=== PATIENT | female | born 1945 | race Caucasian/White ===

== ENCOUNTER 2017-03-12 21:08 | Inpatient (IN) | payer OTHER ==
[~2017-03-12] VITALS: Ht 149.9 cm; Wt 69.0 kg
[2017-03-12] MEDS ORDERED: METHYLPREDNISOLONE 125 MG VIAL IV STA (21:56)
[2017-03-12] MEDS ORDERED: MAGNESIUM SULFATE 1GM / D5W 1 GM BAG IV STA (21:56)
[2017-03-12] MEDS ORDERED: LINA1CAP2 PO (21:58)
[2017-03-12] MEDS ORDERED: SIME80CH PO (21:58)
[2017-03-12] MEDS ORDERED: ALBU18002 INH (21:58)
[2017-03-12] MEDS ORDERED: NAPR500T3 PO (21:58)
[2017-03-12] MEDS ORDERED: SYMIN160 INH (21:58)
[2017-03-12] MEDS ORDERED: MONT1TAB5 PO (21:58)
[2017-03-12] MEDS ORDERED: METH10TA2 PO (21:58)
[2017-03-12] MEDS ORDERED: SIMV20TA2 PO (21:58)
[2017-03-12] MEDS ORDERED: MCRK20 PO (21:58)
[2017-03-12] MEDS ORDERED: ESOM1CAP24 PO (21:58)
[2017-03-12] MEDS ORDERED: FLUT0.15 NAE (21:58)
[2017-03-12] MEDS ORDERED: OXGN (21:58)
[2017-03-12] MEDS ORDERED: ALBINS INH (21:58)
[2017-03-12] MEDS ORDERED: FRS/40 PO (21:58)
[2017-03-12] MEDS ORDERED: LOSA100T65 PO (21:58)
[2017-03-12] MEDS ORDERED: ALPR0.25 PO (21:58)
[2017-03-12] MEDS ORDERED: AZITHROMYCIN IV 500 MG in DEXTROSE 5% 250ML 250 ML IV ONE (22:00)
[2017-03-12] MEDS ORDERED: ALBUT/IPRATROP 3MG/0.5MG NEB 3 ML VIAL INH ONE (22:00)
[2017-03-12 22:02] LABS: BASO % 0.3 %; BASO ABS # 0.02 K/uL (0-0.2); COMPLETE YES; EOS % 0.6 %; HEMATOCRIT 41.5 % (37-47); IG% 0.3 %; LYMPH % 10.3 %; LYMPH ABS # 0.81 K/uL (1.2-3.4); MEAN CELL VOLUME 95.8 fL (80-100); MEAN CORPUSCULAR HEMOGLOBIN 30.7 pg (25-34); MEAN PLATELET VOLUME 9.9 fL (7.4-10.4); MONO % 10.3 %; NEUT % 78.2 %; PLATELET COUNT 207 K/uL (130-400); RED BLOOD COUNT 4.33 M/uL (4.2-5.4); WHITE BLOOD COUNT 7.87 K/uL (4.8-10.8)
--- NOTE | 2017-03-12 22:09 | EMERGENCY ROOM VISIT NOTE ---
History Report prepared by Abebe: Aurelia Ellis Under the Supervision of: Dr. Kyaw Munguia M.D. First contact with patient: 21:38 Chief Complaint: RESPIRATORY PROBLEMS Stated Complaint: COPD, HEADACHE, FEVER, PAIN IN R ARM AND BACK Nursing Triage Summary: pt reports increased pain in abdomen tx for UTI 1 week ago and not feeling better , reports urinary freq. Then started last night with increased sob , + clear to white mucus production History of Present Illness The patient is a 72 year old female who presents to the Emergency Room with complaints of persistent shortness of breath that worsened yesterday. She currently rates her discomfort as a 7/10 in severity. The patient states that she has a history of COPD, noting that she always is short of breath and always has a cough. She states that she has noticed an increased cough, stating that she has bringing up very little white sputum. The patient states that she wears supplemental nasal cannula oxygen at home at night and when she is overly active. She states that today she has noticed fever, chills, and nausea. The patient states that she has been experiencing a headache. She denies any vomiting. She states that she has been using her inhalers at home. The patient states that she has been experiencing abdominal pain and back pain. She reports the pain began when she was recently diagnosed with a UTI. The patient denies any current urinary symptoms. She reports intermittent chest pain, noting that is not abnormal. The patient states that she has noticed increased swelling to her right leg, but notes that she had a previous injury to that leg. She states that she was treated for cellulitis in her right leg two months ago. The patient denies being on prednisone at this time. She states that each morning she wakes up feeling sick. Source of History: patient Onset: yesterday Position: other (global) Symptom Intensity: 7/10 Quality: other (shortness of breath) Timing: worsening, other (persistent) Associated Symptoms: + fevers, + chills, + headache, + nausea, + abdominal pain, + back pain, No vomiting, No urinary symptoms Review of Systems See HPI for pertinent positives and negatives. A total of ten systems were reviewed and were otherwise negative. Past Medical & Surgical Medical Problems: (1) Acute and chronic respiratory failure with hypoxia (2) Asthma (3) COPD (chronic obstructive pulmonary disease) Surgical Problems: (1) S/P cholecystectomy Family History Cancer Lung disease Social History Smoking Status: Current Every Day Smoker Alcohol Use: none Marital Status: Housing Status: lives with significant other Occupation Status: retired Current/Historical Medications Scheduled Albuterol Sulf (Albuterol Sulfate), 2.5 MG INH DIRECTED Albuterol Sulfate (Proair Respiclick), 2 PUFFS INH Q6H Budesonide/Formoterol Fumarate (Symbicort 160/4.5 Inhaler ), 2 PUFFS INH BID Esomeprazole Magnesium (Nexium 24Hr), 20 MG PO QAM Fluticasone Propionate (Nasal) (Flonase Allergy Relief), 1 SPRAY CHARISSA DAILY Furosemide (Lasix), 40 MG PO QAM Home O2 Therapy (Oxygen), Unknown Dose NA HS Linaclotide (Linzess), 290 MCG PO DAILY Losartan Potassium (Cozaar), 100 MG PO QAM Methadone Hcl (Dolophine), 10 MG PO TID Montelukast Sodium (Montelukast Sodium), 10 MG PO QAM Naproxen (Naproxen), 500 MG PO BID Potassium Chloride (Klor-Con M20), 20 MEQ PO QAM Simvastatin (Zocor), 20 MG PO QPM Scheduled PRN Alprazolam (Xanax), 0.125 MG PO DAILY PRN for Anxiety/Agitation Simethicone (Gas-X), 1 TAB PO DIRECTED PRN for Gas or Constipation Allergies Coded Allergies: Diltiazem (Verified Allergy, Unknown, ., 03/13/17) Gabapentin (Verified Allergy, Unknown, ., 03/13/17) Moxifloxacin (Verified Allergy, Unknown, ., 03/13/17) Penicillins (Verified Allergy, Unknown, ., 03/13/17) Sertraline (Verified Allergy, Unknown, ., 03/13/17) Unobtainable (Verified Allergy, Unknown, UNKNOWN, 03/12/17) PT STATES "I HAVE ALLERGIES, CAN'T REMEMBER NAMES". MD [facility]. Uncoded Allergies: Valaresp (Allergy, Unknown, ., 03/13/17) Physical Exam Vital Signs Date Time Temp Pulse Resp B/P (MAP) Pulse Ox O2 Delivery O2 Flow Rate FiO2 03/13/17 01:08 88 03/13/17 00:13 90 19 95 Nasal Cannula 3.0 03/12/17 23:43 88 18 95 Nebulizer 03/12/17 23:13 100 21 95 Nebulizer 03/12/17 23:08 87 16 98 Nebulizer 03/12/17 22:47 134/62 03/12/17 22:45 87 20 134/62 98 Nebulizer 03/12/17 22:27 82 18 94 Room Air 03/12/17 22:08 91 27 93 03/12/17 21:38 93 21 95 03/12/17 21:34 103 03/12/17 21:25 142/75 03/12/17 21:11 37.6 105 18 148/79 86 Room Air Physical Exam GENERAL: Awake, alert, chronically ill-appearing, dyspneic, in no distress HENT: Normocephalic, atraumatic. Oropharynx unremarkable. MM dry EYES: Normal conjunctiva. Sclera non-icteric. NECK: Supple. No nuchal rigidity. FROM. No JVD. RESPIRATORY: Diminished breath sounds throughout, scattered wheezes. CARDIAC: Regular rate, normal rhythm. Extremities warm and well perfused. Pulses equal. ABDOMEN: Soft, non-distended. No tenderness to palpation. No rebound or guarding. No masses. RECTAL: Deferred. MUSCULOSKELETAL: Chest examination reveals no tenderness. The back is symmetrical on inspection without obvious abnormality. There is no CVA tenderness to palpation. No joint edema. LOWER EXTREMITIES: 2+ pitting edema to the right lower extremity with mild erythema, no warmth, no crepitus, NTTP. NEURO: Normal sensorium. No sensory or motor deficits noted. SKIN: No rash or jaundice noted. Medical Decision & Procedures ER Provider Diagnostic Interpretation: Radiology results as stated below per my review and radiologist interpretation: CHEST ONE VIEW PORTABLE HISTORY: 72 years-old Female acute shortness of breath and fever COMPARISON: None available TECHNIQUE: Portable upright AP view of the chest FINDINGS: Patient is slightly rotated to the right. Cardiomediastinal and hilar silhouettes are within normal limits. No pneumothorax, pleural effusion or focal airspace consolidation. Bones are grossly intact. IMPRESSION: No acute cardiopulmonary process. The above report was generated using voice recognition software. It may contain grammatical, syntax or spelling errors. Electronically signed by: Michael Sapp M.D. 03/12/2017 10:21 PM Dictated Date/Time: 03/12/2017 10:20 PM CTA Chest: No PE. No aortic dissection or aneurysm. Coronary calcifications. Scattered Atherosclerotic calcifications of the aorta and branches. Emphysema Minimal scattered atelectasis. Cholecystectomy Old posterior left rib fractures Radiologist: Tahira Jay MD Study ready at 2306 and initial results transmitted at 2331 Laboratory Results 03/12/17 21:30 Red Blood Count 4.33, Mean Corpuscular Volume 95.8, Mean Corpuscular Hemoglobin 30.7, Mean Corpuscular Hemoglobin Concent 32.0, Mean Platelet Volume 9.9, Neutrophils (%) (Auto) 78.2, Lymphocytes (%) (Auto) 10.3, Monocytes (%) (Auto) 10.3, Eosinophils (%) (Auto) 0.6, Basophils (%) (Auto) 0.3, Neutrophils # (Auto ) 6.16, Lymphocytes # (Auto) 0.81, Monocytes # (Auto) 0.81, Eosinophils # (Auto ) 0.05, Basophils # (Auto) 0.02 03/12/17 21:30 Test 03/12/17 21:30 03/12/17 21:39 03/12/17 22:11 03/12/17 22:25 White Blood Count 7.87 K/uL (4.8-10.8) Red Blood Count 4.33 M/uL (4.2-5.4) Hemoglobin 13.3 g/dL (12.0-16.0) Hematocrit 41.5 % (37-47) Mean Corpuscular Volume 95.8 fL (80-100) Mean Corpuscular Hemoglobin 30.7 pg (25-34) Mean Corpuscular Hemoglobin Concent 32.0 g/dl (32-36) Platelet Count 207 K/uL (130-400) Mean Platelet Volume 9.9 fL (7.4-10.4) Neutrophils (%) (Auto) 78.2 % Lymphocytes (%) (Auto) 10.3 % Monocytes (%) (Auto) 10.3 % Eosinophils (%) (Auto) 0.6 % Basophils (%) (Auto) 0.3 % Neutrophils # (Auto) 6.16 K/uL (1.4-6.5) Lymphocytes # (Auto) 0.81 K/uL (1.2-3.4) Monocytes # (Auto) 0.81 K/uL (0.11-0.59) Eosinophils # (Auto) 0.05 K/uL (0-0.5) Basophils # (Auto) 0.02 K/uL (0-0.2) RDW Standard Deviation 48.7 fL (36.4-46.3) RDW Coefficient of Variation 13.7 % (11.5-14.5) Immature Granulocyte % (Auto) 0.3 % Immature Granulocyte # (Auto) 0.02 K/uL (0.00-0.02) Anion Gap 7.0 mmol/L (3-11) Est Creatinine Clear Calc Drug Dose 56.5 ml/min Estimated GFR () 91.7 Estimated GFR (Non- 79.1 BUN/Creatinine Ratio 18.1 (10-20) Calcium Level 9.1 mg/dl (8.5-10.1) Total Bilirubin 0.6 mg/dl (0.2-1) Direct Bilirubin 0.2 mg/dl (0-0.2) Aspartate Amino Transf (AST/SGOT) 14 U/L (15-37) Alanine Aminotransferase (ALT/SGPT) 22 U/L (12-78) Alkaline Phosphatase 51 U/L (45-117) Troponin I < 0.015 ng/ml (0-0.045) Pro-B-Type Natriuretic Peptide 92 pg/ml (0-900) Total Protein 6.7 gm/dl (6.4-8.2) Albumin 3.3 gm/dl (3.4-5.0) Bedside Lactic Acid Venous 0.45 mmol/L (0.90-1.70) Venous Blood pH 7.38 (7.36-7.41) Venous Blood Partial Pressure CO2 52 mmHg (38.0-50.0) Venous Blood Partial Pressure O2 71 mmHg Venous Blood HCO3 30 mmol/L Venous Blood Oxygen Saturation 93.4 % Venous Blood Base Excess 3.6 mEq/L Urine Color YELLOW Urine Appearance CLEAR (CLEAR) Urine pH 5.5 (4.5-7.5) Urine Specific [place] 1.012 (1.000-1.030) Urine Protein NEG (NEG) Urine Glucose (UA) NEG (NEG) Urine Ketones NEG (NEG) Urine Occult Blood NEG (NEG) Urine Nitrite NEG (NEG) Urine Bilirubin NEG (NEG) Urine Urobilinogen NEG (NEG) Urine Leukocyte Esterase NEG (NEG) Laboratory results reviewed by me Medications Administered Medications (Trade) Dose Ordered Sig/Ines Route Start Time Stop Time Status Last Admin Dose Admin Methylprednisolone Sodium Succinate (Solu-Medrol IV) 125 mg NOW STAT IV 03/12/17 21:56 03/12/17 22:03 DC 03/12/17 22:20 125 MG Albuterol/ Ipratropium (Duoneb) 12 ml ONE ONCE INH 03/12/17 22:00 03/12/17 22:03 DC 03/12/17 22:20 12 ML Magnesium Sulfate (Magnesium Sulfate) 2 gm NOW STAT IV 03/12/17 21:56 03/12/17 22:03 DC 03/12/17 22:20 2 GM Azithromycin 500 mg/Dextrose 255 ml @ 125 mls/hr ONE ONCE IV 03/12/17 22:00 03/13/17 00:02 DC 03/12/17 23:16 125 MLS/HR ECG Indication: SOB/dyspnea Rate (beats per minute): 99 Rhythm: normal sinus Findings: no acute ischemic change, other (normal axis ) ED Course 2151: The patient was evaluated in room C8. A complete history and physical exam was performed. 2155: Ordered Magnesium Sulfate 2 gm IV, Solu-Medrol IV 125 mg IV. 2199: Ordered Azithromycin 400 mg/Dextrose 255 ml @ 125 mls/hr IV, DuoNeb 12 ml INH. 0025: I reevaluated the patient and she is resting comfortably. I discussed the exam findings with her and I discussed the treatment plan. She verbalized complete understanding and agreement. She is going to be evaluated for further treatment. 0100: The patient's case was discussed with Dr. Love [facility]. He is going to evaluate the patient for further treatment. Medical Decision I reviewed the patient's past medical history, medications, and the nursing notes as described above. The patient's presentation and history were concerning for COPD exacerbation, pneumonia, bronchitis, ACS, CHF, PE. Patient is a 72-year-old woman with a past medical history of COPD on nocturnal nasal cannula presents to emergency department with worsening shortness of breath cough congestion per history of present illness. Arrival the patient is dyspneic in mild distress and was 85% on room air on arrival. On exam the patient is diminished throughout with scattered wheezes with poor air movement. Patient was given continuous nebs and steroids, magnesium, azithromycin. Labs with WBC within normal limits. Otherwise VBG with mild hypercarbia in the 50s. Chest x-ray unremarkable. EKG unremarkable. Troponin negative in the setting of greater than 6 hours of worsening symptoms making ACS unlikely. However considering the patient's significant dyspnea on presentation without any significant findings on her workup. I had concern for possible underlying pulmonary embolism. CT PE was done and was negative for PE. Otherwise patient additionally reports mild lower abdominal pain has been constant for the past several weeks. Patient was treated for a urinary tract infection by her doctor or she feels that the pain is not improved. CMP unremarkable and UA negative in the setting of a normal WBC I am not concerned for any emergent abdominal process at this time. On reevaluation the patient was feeling improved with improved air movement. She will be admitted to the medicine service for further management. Medication Reconcilliation Current Medication List: was personally reviewed by me Blood Pressure Screening Patient's blood pressure: Elevated blood pressure Blood pressure disposition: Elevated BP felt to be situational, Did not require urgent referral Consults Time Called: 0029 Consulting Physician: HONEY Scherer Returned Call: 0100 The patient's case was discussed with HONEY Scherer. He is going to evaluate the patient for further treatment. Impression Primary Impression: COPD (chronic obstructive pulmonary disease) Scribe Attestation The scribe's documentation has been prepared under my direction and personally reviewed by me in its entirety. I confirm that the note above accurately reflects all work, treatment, procedures, and medical decision making performed by me. Departure Information Dispostion Being Evaluated By Hospitalist Kari Beltran (PCP)
[2017-03-12 22:12] LABS: BLOOD UREA NITROGEN 14 mg/dl (7-18); BUN/CREATININE RATIO 18.1 (10-20); CALCIUM 9.1 mg/dl (8.5-10.1); CARBON DIOXIDE 29 mmol/L (21-32); CHLORIDE 100 mmol/L (98-107); CREATININE 0.75 mg/dl (0.60-1.20); GLUCOSE 103 mg/dl (70-99); POTASSIUM 4.3 mmol/L (3.5-5.1); SODIUM 136 mmol/L (136-145)
[2017-03-12 22:22] LABS: VEN BLD GAS O2 SATURATION 93.4 %; VEN BLOOD GAS BASE EXCESS 3.6 mEq/L
--- NOTE | 2017-03-12 22:22 | DIAGNOSTIC IMAGING REPORT ---
CHEST ONE VIEW PORTABLE HISTORY: 72 years-old Female acute shortness of breath and fever COMPARISON: None available TECHNIQUE: Portable upright AP view of the chest FINDINGS: Patient is slightly rotated to the right. Cardiomediastinal and hilar silhouettes are within normal limits. No pneumothorax, pleural effusion or focal airspace consolidation. Bones are grossly intact. IMPRESSION: No acute cardiopulmonary process. The above report was generated using voice recognition software. It may contain grammatical, syntax or spelling errors. Electronically signed by: Michael Sapp M.D. 03/12/2017 10:21 PM Dictated Date/Time: 03/12/2017 10:20 PM
[2017-03-12 22:27] VITALS: PULSE 82; O2SAT 94
[2017-03-12] MEDS ORDERED: OPTIRAY 320 IV PRN (22:45)
[2017-03-12 23:02] LABS: URINE APPEARANCE CLEAR (CLEAR); URINE BILIRUBIN NEG (NEG); URINE COLOR YELLOW; URINE NITRITE NEG (NEG); URINE PH 5.5 (4.5-7.5); URINE SPECIFIC GRAVITY 1.012 (1.000-1.030); UROBILINOGEN NEG (NEG); ZZUR CULT IF INDIC CLEAN CATCH NO
[2017-03-12 23:33] LABS: MANUAL MICROSCOPIC REQUIRED? NO; REVIEW REQ? NO
[2017-03-13] VITALS (12 sets, daily range): BP systolic 100–123; BP diastolic 59–73; PULSE 74–95; TEMP 36.3–36.9; O2SAT 89–97; Ht 149.9 cm; Wt 69.0 kg
[2017-03-13] MEDS ORDERED: MAGNESIUM HYDROXIDE SUSP 30 ML UDC PO PRN (01:15)
[2017-03-13] MEDS ORDERED: ALUMINUM/MAGNESIUM/SIMETH (MAALOX MAX) 30 ML UDC PO PRN (01:15)
[2017-03-13] MEDS ORDERED: POLYETHYLENE (MIRALAX) 17 GM PACK PO PRN ×2 (01:15→01:30)
[2017-03-13] MEDS ORDERED: ONDANSETRON INJ 2 MG/ML 2 ML VIAL IV PRN (01:15)
[2017-03-13] MEDS ORDERED: ACETAMINOPHEN 325 MG TAB PO PRN (01:15)
[2017-03-13] MEDS ORDERED: ALPRAZOLAM 0.25 MG TAB PO PRN (01:15)
[2017-03-13] MEDS ORDERED: SIMETHICONE 80 MG CHEW PO PRN (01:15)
[2017-03-13 01:20] LABS: ALKALINE PHOSPHATASE 51 U/L (45-117); ALT/SGPT 22 U/L (12-78); AST/SGOT 14 U/L (15-37)
--- NOTE | 2017-03-13 01:28 | History and Physical ---
History & Physical Date & Time of Service: Mar 13, 2017 at 01:13 Chief Complaint: Copd, Headache, Fever, Pain In R Arm And Back Primary Care Physician: Kari Mejia History of Present Illness Source: patient, spouse Mrs Robertson is a 72 yo F with chronic L leg pain (reports she is on methadone for her leg through her PCP in [place]), COPD (on 3L oxygen at night) who presents with worsening shortness of breath and fevers. She reports she felt unwell the last few days, has been coughing, and felt very warm but did not check her temperature. She has diffuse, mild pain in her abdomen and back but these are not new. She was recently treated for a UTI but it unsure of with what. She reports her left leg has been swollen for months, and a few months ago she was on antibiotics for cellulitis, then was seen by a farm assistant. The redness never fully went away. Over the last few days it has become more red as well. She reports it is more red when she is laying on the bed, and the redness goes away when walking. She still smokes outside about 1 pack per day. She reports she is eager to quit but is unable to. Past Medical/Surgical History Medical Problems: (1) Asthma Status: Chronic (2) COPD (chronic obstructive pulmonary disease) Status: Chronic Surgical Problems: (1) S/P cholecystectomy Status: Resolved Family History Cancer Lung disease Social History Smoking Status: Current Every Day Smoker Smokeless Tobacco Use: No Alcohol Use: none Drug Use: none Marital Status: Housing status: lives with family Occupational Status: retired Immunizations History of Influenza Vaccine: Unknown History of Tetanus Vaccine?: Unknown History of Pneumococcal: Unknown History of Hepatitis B Vaccine: Unknown Multi-Drug Resistant Organisms History of MDRO: No Allergies Coded Allergies: Unobtainable (Verified Allergy, Unknown, UNKNOWN, 03/12/17) PT STATES "I HAVE ALLERGIES, CAN'T REMEMBER NAMES". [facility] [place]. Home Medications Scheduled Albuterol Sulf (Albuterol Sulfate), 2.5 MG INH DIRECTED Albuterol Sulfate (Proair Respiclick), 2 PUFFS INH Q6H Budesonide/Formoterol Fumarate (Symbicort 160/4.5 Inhaler ), 2 PUFFS INH BID Esomeprazole Magnesium (Nexium 24Hr), 20 MG PO QAM Fluticasone Propionate (Nasal) (Flonase Allergy Relief), 1 SPRAY CHARISSA DAILY Furosemide (Lasix), 40 MG PO QAM Home O2 Therapy (Oxygen), Unknown Dose NA HS Linaclotide (Linzess), 290 MCG PO DAILY Losartan Potassium (Cozaar), 100 MG PO QAM Methadone Hcl (Dolophine), 10 MG PO TID Montelukast Sodium (Montelukast Sodium), 10 MG PO QAM Naproxen (Naproxen), 500 MG PO BID Potassium Chloride (Klor-Con M20), 20 MEQ PO QAM Simvastatin (Zocor), 20 MG PO QPM Scheduled PRN Alprazolam (Xanax), 0.125 MG PO DAILY PRN for Anxiety/Agitation Simethicone (Gas-X), 1 TAB PO DIRECTED PRN for Gas or Constipation Review of Systems See HPI for pertinent positives & negatives. A total of 10 systems reviewed and were otherwise negative. Physical Exam Vital Signs Date Time Temp Pulse Resp B/P (MAP) Pulse Ox O2 Delivery O2 Flow Rate FiO2 03/13/17 00:13 90 19 95 Nasal Cannula 3.0 03/12/17 23:43 88 18 95 Nebulizer 03/12/17 23:13 100 21 95 Nebulizer 03/12/17 23:08 87 16 98 Nebulizer 03/12/17 22:47 134/62 03/12/17 22:45 87 20 134/62 98 Nebulizer 03/12/17 22:27 82 18 94 Room Air 03/12/17 22:08 91 27 93 03/12/17 21:38 93 21 95 03/12/17 21:34 103 03/12/17 21:25 142/75 03/12/17 21:11 37.6 105 18 148/79 86 Room Air General Appearance: WD/WN, no apparent distress, + thin Head: normocephalic, atraumatic Eyes: normal inspection, PERRL, + pertinent finding (small pupils, equal, 3mm bilaterally) ENT: hearing grossly normal Neck: supple, no JVD Respiratory/Chest: lungs clear (after 1 hr Duoneb), normal breath sounds, no respiratory distress, no accessory muscle use Cardiovascular: regular rate, rhythm, no murmur, normal peripheral pulses Abdomen/GI: normal bowel sounds, non tender, soft Back: no CVA tenderness, no muscle spasm Extremities/Musculoskelatal: + pertinent finding (Left leg is erythematous up to mid-calf, edema +2, and tender to palpation) Neurologic/Psych: alert, normal mood/affect, normal reflexes, oriented x 3 Skin: + rash (see above) Diagnostics Laboratory Results Results Past 24 Hours Test 03/12/17 21:30 03/12/17 21:39 03/12/17 22:11 03/12/17 22:25 Range/Units White Blood Count 7.87 4.8-10.8 K/uL Red Blood Count 4.33 4.2-5.4 M/uL Hemoglobin 13.3 12.0-16.0 g/dL Hematocrit 41.5 37-47 % Mean Corpuscular Volume 95.8 80-100 fL Mean Corpuscular Hemoglobin 30.7 25-34 pg Mean Corpuscular Hemoglobin Concent 32.0 32-36 g/dl Platelet Count 207 130-400 K/uL Mean Platelet Volume 9.9 7.4-10.4 fL Neutrophils (%) (Auto) 78.2 % Lymphocytes (%) (Auto) 10.3 % Monocytes (%) (Auto) 10.3 % Eosinophils (%) (Auto) 0.6 % Basophils (%) (Auto) 0.3 % Neutrophils # (Auto) 6.16 1.4-6.5 K/uL Lymphocytes # (Auto) 0.81 1.2-3.4 K/uL Monocytes # (Auto) 0.81 0.11-0.59 K/uL Eosinophils # (Auto) 0.05 0-0.5 K/uL Basophils # (Auto) 0.02 0-0.2 K/uL RDW Standard Deviation 48.7 36.4-46.3 fL RDW Coefficient of Variation 13.7 11.5-14.5 % Immature Granulocyte % (Auto) 0.3 % Immature Granulocyte # (Auto) 0.02 0.00-0.02 K/uL Sodium Level 136 136-145 mmol/L Potassium Level 4.3 3.5-5.1 mmol/L Chloride Level 100 98-107 mmol/L Carbon Dioxide Level 29 21-32 mmol/L Anion Gap 7.0 3-11 mmol/L Blood Urea Nitrogen 14 7-18 mg/dl Creatinine 0.75 0.60-1.20 mg/dl Est Creatinine Clear Calc Drug Dose 56.5 ml/min Estimated GFR () 91.7 Estimated GFR (Non- 79.1 BUN/Creatinine Ratio 18.1 10-20 Random Glucose 103 70-99 mg/dl Calcium Level 9.1 8.5-10.1 mg/dl Troponin I < 0.015 0-0.045 ng/ml Pro-B-Type Natriuretic Peptide 92 0-900 pg/ml Bedside Lactic Acid Venous 0.45 0.90-1.70 mmol/L Venous Blood pH 7.38 7.36-7.41 Venous Blood Partial Pressure CO2 52 38.0-50.0 mmHg Venous Blood Partial Pressure O2 71 mmHg Venous Blood HCO3 30 mmol/L Venous Blood Oxygen Saturation 93.4 % Venous Blood Base Excess 3.6 mEq/L Urine Color YELLOW Urine Appearance CLEAR CLEAR Urine pH 5.5 4.5-7.5 Urine Specific [place] 1.012 1.000-1.030 Urine Protein NEG NEG Urine Glucose (UA) NEG NEG Urine Ketones NEG NEG Urine Occult Blood NEG NEG Urine Nitrite NEG NEG Urine Bilirubin NEG NEG Urine Urobilinogen NEG NEG Urine Leukocyte Esterase NEG NEG CXR normal Impression Assessment and Plan 72 yo F, active smoker with COPD, who presents with shortness of breath & fevers , also found to have a L leg cellulitis. COPD exacerbation - 87% on room air - Was given Solu-Medrol in ED, will transition to PO steroids - Continue Duonebs while awake - Continue home inhalers - Smoking cessation counselling. Advised that she should not be smoking if she is on home oxygen. Left leg cellulitis - Will give an IV dose of Rocephin and Vancomycin - Doppler US of L leg Left leg edema / pain - Continue home methadone,10 mg TID - PDMP Reviewed - Pt has been getting Methadone 10mg TID for years (since 2010, not just since leg pain began as she reported), from 3 providers in [place], is refilling at appropriate intervals. - No further narcotics Opioid-induced constipation - Continue Lynzess if pharmacy has it, otherwise Colace, Miralax, and Senna BID Attending Addendum: I have physically seen and examined this patient, have supervised the medical residents activities, and agree with the H&P as noted above with the following exceptions: NONE The patient is awake, alert and oriented 3, thin, normocephalic and atraumatic , lying in bed and in no acute distress. HEENT--PERRL, EOMI, mucous membranes and oropharynx dry. Neck--supple, no JVD or bruits, thyroid normal, trachea midline, no adenopathy. Heart--normal S1 and S2, no extra beats, no murmurs, rubs or gallops. Lungs--clear bilaterally with good air movement, no respiratory distress, no accessory muscle use. Abdomen--normal bowel sounds and soft, nontender and nondistended, no hernias or masses, no organomegaly. Extremities--right lower extremity with 1+ pitting edema, and erythema and warmth to mid height. There are good distal pulses b/l. Dermatologic--normal skin turgor, normal color, warm and dry, no abnormal lymph nodes. Rash as noted above. Neurologic--cranial nerves II through XII grossly intact, motor and sensory examination normal. Rheumatologic--normal range of motion, nontender, muscles and joints. Psychiatric--normal affect. Assessment and Plan: 1. COPD exacerbation/right lower extremity cellulitis--admitted to the telemetry unit for close oxygen monitoring. Do nebs every 4 hours while awake and every 2 hours when necessary. Vancomycin IV per pharmacokinetic monitoring, and ceftriaxone [address] on Solu-Medrol IV, already begun in the ED. Tobacco cessation. Level of Care Telemetry Advanced Directives Existing Advance Directive: No Existing Living Will: No Existing Power of [place]: No Resuscitation Status FULL RESUSCITATION VTE Prophylaxis VTE Risk Assessment Done? Y/N: Yes Risk Level: Moderate Given or contraindicated: Enoxaparin (Lovenox)SQ Resident Tracking Resident Involvement: Resident Care Provided Care Provided: Adult Hospital Medicine
[2017-03-13] MEDS ORDERED: SENNA 8.6 MG TAB PO PRN (01:30)
[2017-03-13] MEDS ORDERED: DOCUSATE SODIUM 100 MG CAP PO PRN (01:30)
[2017-03-13] MEDS ORDERED: VANCOMYCIN CONSULT ACTIVE PRN (03:00)
[2017-03-13] MEDS: CEFTRIAXONE SOD INJ 1 GM in DEXTROSE 5% ADD-VANTAGE 50ML 50 ML IV SCH (03:32)
[2017-03-13] MEDS: ALBUT/IPRATROP 3MG/0.5MG NEB 3 ML VIAL INH SCH ×5 (03:55→19:32)
[2017-03-13] MEDS ORDERED: VANCOMYCIN INJ 1,750 MG in SODIUM CHLORIDE 0.9% 500ML 500 ML IV SCH (04:30)
[2017-03-13 06:13] LABS: PROTHROMBIN TIME (PATIENT) 10.4 SECONDS (9.0-12.0)
--- NOTE | 2017-03-13 07:10 | DIAGNOSTIC IMAGING REPORT ---
RIGHT VENOUS DOPP LOWER EXT UNILAT CLINICAL HISTORY: R leg cellulitis ?DVT Right pain. Edema. TECHNIQUE: Venous Doppler COMPARISON STUDY: None FINDINGS: Normal study. No evidence for deep venous thrombosis. Small right popliteal cyst measuring 3 x 1 cm IMPRESSION: No evidence for deep venous thrombosis The above report was generated using voice recognition software. It may contain grammatical, syntax or spelling errors. Electronically signed by: Jesus Manuel Varela M.D. 03/13/2017 7:09 AM Dictated Date/Time: 03/13/2017 7:08 AM
--- NOTE | 2017-03-13 07:26 | DIAGNOSTIC IMAGING REPORT ---
(CHEST FOR PE) ANGIO WITH CT DOSE: 333.62 mGy.cm HISTORY: Chest pain dyspnea TECHNIQUE: Multiaxial CT images of the chest were performed following the intravenous administration of contrast to evaluate the pulmonary arteries. Maximal intensity projection images were also obtained. A dose lowering technique was utilized adhering to the principles of ALARA. COMPARISON STUDY: None. FINDINGS: There is a normal caliber thoracic aorta with no evidence for dissection. There is no evidence for pulmonary embolus. No pleural effusions. No pneumothorax. The liver and spleen are unremarkable. No mediastinal or hilar lymphadenopathy. The central airways are patent. Scattered atelectatic change of the lungs. Apical fibrotic change most likely chronic. Mild emphysematous change. Slight peribronchial thickening. IMPRESSION: 1. No evidence for pulmonary embolus. 2. Mild emphysematous change with scattered foci of atelectatic change. 3. Mild peribronchial thickening. The above report was generated using voice recognition software. It may contain grammatical, syntax or spelling errors. Electronically signed by: Jesus Manuel Varela M.D. 03/13/2017 7:24 AM Dictated Date/Time: 03/13/2017 7:22 AM
[2017-03-13] MEDS: LINZESS~ORDER AWAITING ACTION SCH ×2 (08:00→16:00)
[2017-03-13] MEDS: FLUTICASONE PROPIONATE NA SPR 16 GM BTL NAE SCH (08:06)
[2017-03-13] MEDS: NICOTINE 14 MG/24 HR TDSY TD SCH (08:06)
[2017-03-13] MEDS: BUDESONIDE/FORMOTEROL FUMARATE 160/4.5 60 PUFFS/INHALER INH SCH ×2 (08:06→20:31)
[2017-03-13] MEDS: MONTELUKAST SOD 10 MG TAB PO SCH (08:07)
[2017-03-13] MEDS: PANTOprazole SOD 40 MG TAB PO SCH (08:07)
[2017-03-13] MEDS: METHADONE HCL 10 MG TAB PO SCH ×3 (08:07→20:31)
[2017-03-13] MEDS: ENOXAPARIN 40 MG/0.4 ML SYR SC SCH (08:07)
[2017-03-13] MEDS: FUROSEMIDE 40 MG TAB PO SCH (08:08)
[2017-03-13] MEDS: PATIENT'S ALLERGY INFO NEEDS ENTERED SCH ×2 (08:08→16:00)
[2017-03-13] MEDS: POTASSIUM CHLORIDE 20 MEQ TABCR PO SCH (08:08)
[2017-03-13] MEDS: LOSARTAN POTASSIUM 50 MG TAB PO SCH (08:08)
--- NOTE | 2017-03-13 08:53 | Pharmacy Progress Note ---
Pharmacy Abx Initial Consult Date of Service Mar 13, 2017. Pharmacy Dosing Scope Date of Consult: 03/13/17 Consultation requested by: Dr. Kwan Pharmacy is consulted to initiate vancomycin IV dosing therapy, order appropriate labs and adjust drug dose/frequency. Subjective The patient is a 72 year old female admitted on Mar 13, 2017 at 01:11. Objective Height (Feet): 4 Height (Inches): 11.00 Weight (Kilograms): 69.000 (BMI = 30.7) Vital Signs (Past 12Hrs) Vital Signs Past 12 Hours Date Time Temp Pulse Resp B/P (MAP) Pulse Ox O2 Delivery O2 Flow Rate FiO2 03/13/17 07:17 36.4 74 20 100/59 (73) 96 03/13/17 07:07 76 16 95 Nasal Cannula 3.0 03/13/17 04:00 93 Nasal Cannula 3.0 03/13/17 03:55 83 16 94 Nasal Cannula 3.0 03/13/17 02:46 36.4 85 20 116/65 (82) 91 3.0 03/13/17 02:05 37.6 88 19 135/61 95 03/13/17 02:03 88 19 135/61 95 Nasal Cannula 3.0 03/13/17 01:50 Nasal Cannula 3.0 03/13/17 01:08 88 03/13/17 00:13 90 19 95 Nasal Cannula 3.0 03/12/17 23:43 88 18 95 Nebulizer 03/12/17 23:13 100 21 95 Nebulizer 03/12/17 23:08 87 16 98 Nebulizer 03/12/17 22:47 134/62 03/12/17 22:45 87 20 134/62 98 Nebulizer 03/12/17 22:27 82 18 94 Room Air 03/12/17 22:08 91 27 93 03/12/17 21:38 93 21 95 03/12/17 21:34 103 03/12/17 21:25 142/75 03/12/17 21:11 37.6 105 18 148/79 86 Room Air Lab Results (24Hrs) Laboratory Tests (24 Hours) Test 03/12/17 21:30 White Blood Count 7.87 K/uL (4.8-10.8) Red Blood Count 4.33 M/uL (4.2-5.4) Hemoglobin 13.3 g/dL (12.0-16.0) Hematocrit 41.5 % (37-47) Mean Corpuscular Volume 95.8 fL (80-100) Mean Corpuscular Hemoglobin 30.7 pg (25-34) Mean Corpuscular Hemoglobin Concent 32.0 g/dl (32-36) Platelet Count 207 K/uL (130-400) Mean Platelet Volume 9.9 fL (7.4-10.4) Neutrophils (%) (Auto) 78.2 % Lymphocytes (%) (Auto) 10.3 % Monocytes (%) (Auto) 10.3 % Eosinophils (%) (Auto) 0.6 % Basophils (%) (Auto) 0.3 % Neutrophils # (Auto) 6.16 K/uL (1.4-6.5) Lymphocytes # (Auto) 0.81 K/uL (1.2-3.4) L Monocytes # (Auto) 0.81 K/uL (0.11-0.59) H Eosinophils # (Auto) 0.05 K/uL (0-0.5) Basophils # (Auto) 0.02 K/uL (0-0.2) Risk Factors for Resistance * Antimicrobial use within the last 90 days - treatment for cellulitis and UTI ( unknown antibiotics) Assessment & Plan Assessment 72 year old female admitted with COPD exacerbation and left leg cellulitis. Recent antibiotic therapy for cellulitis and has continued to worsen so patient placed on IV vancomycin and Rocephin. Plan Vancomycin IV * Est PK parameters: Vd ~ 0.65-0.7 L/kg, Nomi ~ 0.051, t1/2 ~ 14 hrs * Loading dose: 1750 mg (25 mg/kg) * Maintenance dose: 1000 mg IV (14.4 mg/kg) every 20 hours * Goal trough level for cellulitis : 10 to 15 mcg/mL * Trough level ordered for 03/15/17 prior to the 4th overall dose * An extended dosing interval has been selected due to likelihood of drug accumulation in obese patient Rocephin not being dosed per pharmacy but is appropriate Pharmacy will continue to follow and will adjust dose/frequency as necessary. Thank you.
[2017-03-13] MEDS ORDERED: VANCOMYCIN INJ 1,000 MG in SODIUM CHLORIDE 0.9% 250ML 250 ML IV SCH (09:00)
--- NOTE | 2017-03-13 12:03 | Hospitalist Progress Note ---
Hospitalist Progress Note Date of Service Mar 13, 2017. (Alejandrina Isaacs ., PA-C) Subjective Pt evaluation today including: conversation w/ patient, physical exam, chart review, lab review, review of studies, review of inpatient medication list Voiding: no voiding problems, no incontinence Patient feeling well. SOB has greatly improved since admission. +3L HS and PRN- has been wearing 3L around the house more frequently over the past few days. Continues to smoke daily. LLE redness has improved. States leg has been red/swelled since an accident a few years ago. Recently treated w/ antibiotics for LLE cellulitis- unsure of which antibiotic +epigastric discomfort. Ongoing issue x a few months. Worse in the morning after waking up. Was on Nexium for h/o GERD but quit taking it a few months ago because she could not longer burp. States she had an unremarkable EGD in 2013. +Cholecystectomy. +chronic back pain. Currently denies any discomfort. States it was worse last PM. She was given medication by her PCP which resolved pain, but ran out- unsure of medication. Patient denies any fever, chills, sweats, lightheadedness, dizziness, vision changes, CP, palpitations, SOB, wheezing, cough, nausea, vomiting, diarrhea, urinary symptoms, melena, numbness/tingling, weakness, anxiety/depression, active bleeding, or new skin discoloration/changes. (Alejandrina Isaacs ., PA-C) Medications Current Inpatient Medications Medications (Trade) Dose Ordered Sig/Ines Route Start Time Stop Time Status Last Admin Dose Admin Ioversol (Optiray 320) 100 ml UD PRN IV 03/12/17 22:45 03/16/17 22:44 Enoxaparin Sodium (Lovenox Inj) 40 mg Q24H SC 03/13/17 09:00 04/12/17 08:59 03/13/17 08:07 40 MG Acetaminophen (Tylenol Tab) 650 mg Q4H PRN PO 03/13/17 01:15 04/12/17 01:14 Al Hydrox/Mg Hydrox/Simethicone (Maalox Max Susp) 15 ml Q4H PRN PO 03/13/17 01:15 04/12/17 01:14 Magnesium Hydroxide (Milk Of Magnesia Susp) 30 ml Q12H PRN PO 03/13/17 01:15 04/12/17 01:14 Ondansetron HCl (Zofran Inj) 4 mg Q6H PRN IV 03/13/17 01:15 04/12/17 01:14 Polyethylene (Miralax Powder Packet) 17 gm DAILY PRN PO 03/13/17 01:15 04/12/17 01:14 Nicotine (Nicoderm Cq 14MG Patch) 1 patch QAM TD 03/13/17 09:00 04/12/17 08:59 03/13/17 08:06 1 PATCH Miscellaneous (Remove Nicoderm Patch) 1 ea HS N/A 03/13/17 21:00 04/12/17 20:59 Alprazolam (Xanax Tab) 0.125 mg DAILY PRN PO 03/13/17 01:15 04/12/17 01:14 Budesonide/ Formoterol Fumarate (Symbicort 160/ 4.5 Inh) 2 puffs BID INH 03/13/17 09:00 04/12/17 08:59 03/13/17 08:06 2 PUFFS Fluticasone Propionate (Flonase Nasal [place]) 2 sprays DAILY CHARISSA 03/13/17 09:00 04/12/17 08:59 03/13/17 08:06 2 SPRAYS Furosemide (Lasix Tab) 40 mg QAM PO 03/13/17 09:00 04/12/17 08:59 03/13/17 08:08 40 MG Losartan Potassium (coZAAR TAB) 100 mg QAM PO 03/13/17 09:00 04/12/17 08:59 03/13/17 08:08 100 MG Methadone HCl (Dolophine Tab) 10 mg TID PO 03/13/17 09:00 03/27/17 08:59 03/13/17 08:07 10 MG Montelukast Sodium (Singulair Tab) 10 mg QAM PO 03/13/17 09:00 04/12/17 08:59 03/13/17 08:07 10 MG Potassium Chloride (Klor-Con Tab) 20 meq QAM PO 03/13/17 09:00 04/12/17 08:59 03/13/17 08:08 20 MEQ Simethicone (Mylicon Chew Tab) 80 mg Q8H PRN PO 03/13/17 01:15 04/12/17 01:14 Simvastatin (Zocor Tab) 20 mg QPM PO 03/13/17 21:00 04/12/17 20:59 Pantoprazole Sodium (Protonix Tab) 40 mg QAM PO 03/13/17 09:00 04/12/17 08:59 03/13/17 08:07 40 MG Miscellaneous Information (Order Awaiting Action) 1 ea QS N/A 03/13/17 08:00 04/12/17 07:59 Ceftriaxone Sodium 1 gm/ Dextrose 50 ml @ 100 mls/hr Q24H IV 03/13/17 04:00 03/23/17 03:59 03/13/17 03:32 100 MLS/HR Prednisone (PredniSONE TAB) 50 mg 0600 PO 03/13/17 06:00 03/15/17 05:59 03/13/17 04:55 50 MG Albuterol/ Ipratropium (Duoneb) 3 ml QIDR INH 03/13/17 08:00 04/12/17 07:59 03/13/17 11:16 3 ML Docusate Sodium (coLACE CAP) 100 mg BID PRN PO 03/13/17 01:30 04/12/17 01:29 Senna (Senokot Tab) 17.2 mg QAM PRN PO 03/13/17 01:30 04/12/17 01:29 Vancomycin HCl (Consult) 1 ea UD PRN N/A 03/13/17 03:00 04/12/17 02:59 Miscellaneous Information (Patient'S Allergy Info Needs Entered) 1 ea QS N/A 03/13/17 08:00 04/12/17 07:59 03/13/17 08:08 1 EA Vancomycin HCl 1000 mg/Sodium Chloride 270 ml @ 125 mls/hr Q20H IV 03/14/17 00:00 03/23/17 04:59 (Alejandrina Isaacs PA-C) Objective Vital Signs Date Time Temp Pulse Resp B/P (MAP) Pulse Ox O2 Delivery O2 Flow Rate FiO2 03/13/17 11:17 82 16 95 Nasal Cannula 3.0 03/13/17 11:10 36.9 78 20 105/60 (75) 97 3.0 03/13/17 08:15 Room Air 3.0 Nasal Cannula 03/13/17 07:17 36.4 74 20 100/59 (73) 96 03/13/17 07:07 76 16 95 Nasal Cannula 3.0 03/13/17 04:00 93 Nasal Cannula 3.0 03/13/17 03:55 83 16 94 Nasal Cannula 3.0 03/13/17 02:46 36.4 85 20 116/65 (82) 91 3.0 03/13/17 02:05 37.6 88 19 135/61 95 03/13/17 02:03 88 19 135/61 95 Nasal Cannula 3.0 03/13/17 01:50 Nasal Cannula 3.0 03/13/17 01:08 88 03/13/17 00:13 90 19 95 Nasal Cannula 3.0 03/12/17 23:43 88 18 95 Nebulizer 03/12/17 23:13 100 21 95 Nebulizer 03/12/17 23:08 87 16 98 Nebulizer 03/12/17 22:47 134/62 03/12/17 22:45 87 20 134/62 98 Nebulizer 03/12/17 22:27 82 18 94 Room Air 03/12/17 22:08 91 27 93 03/12/17 21:38 93 21 95 03/12/17 21:34 103 03/12/17 21:25 142/75 03/12/17 21:11 37.6 105 18 148/79 86 Room Air (Alejandrina Isaacs, PA-C) Physical Exam General Appearance: no apparent distress, + pertinent finding (3L O2 NC ) Eyes: normal inspection, PERRL ENT: hearing grossly normal Neck: supple Respiratory/Chest: no respiratory distress, no accessory muscle use, + decreased breath sounds (throughout all lung coon ) Cardiovascular: regular rate, rhythm Abdomen: normal bowel sounds, non tender, soft, no organomegaly Extremities: no calf tenderness, + swelling (+1 pitting edema of bilateral lower extremities), + pertinent finding (+mild erythema and warmth to LLE; cellulitis mapping noted- no extending erythema ) Neurologic/Psychiatric: alert, normal mood/affect, oriented x 3 Skin: normal color, warm/dry, no rash (Alejandrina Isaacs, PA-C) Laboratory Results Last 24 Hours Test 03/12/17 21:30 8/8/17 21:39 03/12/17 22:11 03/12/17 22:25 White Blood Count 7.87 K/uL Red Blood Count 4.33 M/uL Hemoglobin 13.3 g/dL Hematocrit 41.5 % Mean Corpuscular Volume 95.8 fL Mean Corpuscular Hemoglobin 30.7 pg Mean Corpuscular Hemoglobin Concent 32.0 g/dl Platelet Count 207 K/uL Mean Platelet Volume 9.9 fL Neutrophils (%) (Auto) 78.2 % Lymphocytes (%) (Auto) 10.3 % Monocytes (%) (Auto) 10.3 % Eosinophils (%) (Auto) 0.6 % Basophils (%) (Auto) 0.3 % Neutrophils # (Auto) 6.16 K/uL Lymphocytes # (Auto) 0.81 K/uL Monocytes # (Auto) 0.81 K/uL Eosinophils # (Auto) 0.05 K/uL Basophils # (Auto) 0.02 K/uL RDW Standard Deviation 48.7 fL RDW Coefficient of Variation 13.7 % Immature Granulocyte % (Auto) 0.3 % Immature Granulocyte # (Auto) 0.02 K/uL Sodium Level 136 mmol/L Potassium Level 4.3 mmol/L Chloride Level 100 mmol/L Carbon Dioxide Level 29 mmol/L Anion Gap 7.0 mmol/L Blood Urea Nitrogen 14 mg/dl Creatinine 0.75 mg/dl Est Creatinine Clear Calc Drug Dose 56.5 ml/min Estimated GFR () 91.7 Estimated GFR (Non- 79.1 BUN/Creatinine Ratio 18.1 Random Glucose 103 mg/dl Calcium Level 9.1 mg/dl Total Bilirubin 0.6 mg/dl Direct Bilirubin 0.2 mg/dl Aspartate Amino Transf (AST/SGOT) 14 U/L Alanine Aminotransferase (ALT/SGPT) 22 U/L Alkaline Phosphatase 51 U/L Troponin I < 0.015 ng/ml Pro-B-Type Natriuretic Peptide 92 pg/ml Total Protein 6.7 gm/dl Albumin 3.3 gm/dl Bedside Lactic Acid Venous 0.45 mmol/L Venous Blood pH 7.38 Venous Blood Partial Pressure CO2 52 mmHg Venous Blood Partial Pressure O2 71 mmHg Venous Blood HCO3 30 mmol/L Venous Blood Oxygen Saturation 93.4 % Venous Blood Base Excess 3.6 mEq/L Urine Color YELLOW Urine Appearance CLEAR Urine pH 5.5 Urine Specific Dewitt 1.012 Urine Protein NEG Urine Glucose (UA) NEG Urine Ketones NEG Urine Occult Blood NEG Urine Nitrite NEG Urine Bilirubin NEG Urine Urobilinogen NEG Urine Leukocyte Esterase NEG Test 03/13/17 05:48 Prothrombin Time 10.4 SECONDS Prothromb Time International Ratio 1.0 (Alejandrina Isaacs .ILIRC) Assessment and Plan 72 yo F, active smoker with COPD, who presents with shortness of breath & fevers , also found to have a L leg cellulitis. Acute on chronic COPD exacerbation- IMPROVING: - Admit to tele- no acute events -- Transfer to med/surg on 03/13 - O2 protocol, wean as tolerated- wears 3L O2 HS and PRN at home - IV Solu-Medrol 125 mg x1 dose in ED; admitted on PO Prednisone 50 mg and will taper - DuoNebs QID and continue home inhalers Tobacco abuse, 1/2-1 pack per day: - NicoDerm patch - Smoking cessation counselling LLE cellulitis: - IV dose of Rocephin and Vancomycin - Doppler US of L leg- no evidence of DVT - Continue Methadone 10 mg TID for pain Opioid-induced constipation: Continue Linzess non-formulary- Colace, MiraLAX, and Senna BID ?Chronic CHF: - No records. Patient states she takes Lasix daily for "fluid". - Continue Lasix 40 mg daily and KCL supplement Anxiety: Continue Xanax 0.125 mg PRN HTN: Continue Losartan 100 mg daily Dyslipidemia: Continue Zocor 20 mg HS GI Prophylaxis: Protonix DVT Prophylaxis: Lovenox SQ daily Code Status: LEVEL I, FULL Dispo: From home, lives w/ - PT/OT evaluations pending (Alejandrina Isaacs, DOMINGUEZ) PA Physician Supervision Note: I interviewed and examined the patient. Discussed with Alejandrina Bro PAC and agree with findings and plan as documented in the note. Any exceptions or clarifications are listed here: None this pt is dong well, leg is chronically redened, breathing is improving over baseline vss, lungs with poor air movement bases 72 yo F, copd exacerbation in pt who continues to smoke and acute on chronic leg redness with concern for cellulitis Acute on chronic COPD PO Prednisone 50 mg and taper - DuoNebs QID and continue home inhalers Tobacco abuse,Smoking cessation counselling LLE cellulitis Rocephin and Vancomycin no evidence of DVT on doppler DVT Prophylaxis: Lovenox Dispo: From home, lives w/ - PT/OT evaluations pending Documented By: Kevin Loyd (Kevin Loyd M.D.)
[2017-03-13] MEDS ORDERED: SIMVASTATIN 20 MG TAB PO SCH (21:00)
[2017-03-14] MEDS ORDERED: VANCOMYCIN INJ 1,000 MG in SODIUM CHLORIDE 0.9% 250ML 250 ML IV SCH ×2
[2017-03-14] MEDS: CEFTRIAXONE SOD INJ 1 GM in DEXTROSE 5% ADD-VANTAGE 50ML 50 ML IV SCH (04:43)
[2017-03-14] MEDS ORDERED: NURSING DECISION MEDICATION ORDER SCH (05:45)
[2017-03-14] MEDS ORDERED: COUGH DROP (SUGAR FREE) LOZ 24 LOZ/1 BOX PO PRN (05:45)
[2017-03-14] MEDS: ALBUT/IPRATROP 3MG/0.5MG NEB 3 ML VIAL INH SCH ×2 (06:59→11:03)
[2017-03-14 07:04] VITALS: PULSE 82; O2SAT 93
[2017-03-14] MEDS: LINZESS~ORDER AWAITING ACTION SCH ×2 (07:07)
[2017-03-14 07:29] VITALS: BP 120/76; PULSE 67; TEMP 36.8; O2SAT 97
[2017-03-14] MEDS: LOSARTAN POTASSIUM 50 MG TAB PO SCH (08:26)
[2017-03-14] MEDS: MONTELUKAST SOD 10 MG TAB PO SCH (08:26)
[2017-03-14] MEDS: PANTOprazole SOD 40 MG TAB PO SCH (08:26)
[2017-03-14] MEDS: FUROSEMIDE 40 MG TAB PO SCH (08:27)
[2017-03-14] MEDS: POTASSIUM CHLORIDE 20 MEQ TABCR PO SCH (08:27)
[2017-03-14] MEDS: BUDESONIDE/FORMOTEROL FUMARATE 160/4.5 60 PUFFS/INHALER INH SCH (08:28)
[2017-03-14] MEDS: FLUTICASONE PROPIONATE NA SPR 16 GM BTL NAE SCH (08:28)
[2017-03-14] MEDS: NICOTINE 14 MG/24 HR TDSY TD SCH (08:28)
[2017-03-14 08:29] LABS: CREATININE 0.74 mg/dl (0.60-1.20)
[2017-03-14] MEDS: ENOXAPARIN 40 MG/0.4 ML SYR SC SCH (08:30)
[2017-03-14] MEDS: METHADONE HCL 10 MG TAB PO SCH ×2 (08:35→14:19)
[2017-03-14 11:04] VITALS: PULSE 84; O2SAT 90
[2017-03-14 12:11] VITALS: BP 120/76; PULSE 84; TEMP 36.8; O2SAT 90
[2017-03-14] MEDS ORDERED: IPRA1AER2 INH (12:27)
[2017-03-14] MEDS ORDERED: ALBINS INH (12:27)
[2017-03-14] MEDS ORDERED: PRED10TA PO (12:27)
[2017-03-14] MEDS ORDERED: DOXY-300 PO (12:27)
--- NOTE | 2017-03-14 12:28 | Discharge Instructions ---
Discharge Instructions Date of Service Mar 14, 2017. Admission Reason for Admission: Acute And Chronic Respiratory Failure With Hypoxia Discharge Discharge Diagnosis / Problem: copd exacerbation, le cellulitis Discharge Goals Goal(s): Diagnostic testing, Therapeutic intervention Activity Recommendations Activity Limitations: resume your previous activity . Current Hospital Diet Patient's current hospital diet: AHA Diet (Heart Healthy) Discharge Diet Recommended Diet: Regular Diet Pending Studies Studies pending at discharge: no Medical Emergencies . Who to Call and When: Medical Emergencies: If at any time you feel your situation is an emergency, please call 911 immediately. . Non-Emergent Contact Non-Emergency issues call your: Primary Care Provider Call Non-Emergent contact if: temperature is above 101, your pain is unusual for you . . "Provider Documentation" section prepared by Kevin Loyd. . VTE Core Measure Inpt VTE Proph given/why not?: Enoxaparin (Lovenox)SQ
--- NOTE | 2017-03-14 19:13 | Discharge Summary ---
Discharge Summary Date of Service Mar 14, 2017. Discharge Summary Admission Date: Mar 13, 2017 at 01:11 Discharge Date: Mar 14, 2017 Discharge Disposition: Home Principal Diagnosis: COPD exacerbation, lower extremity cellulitis Problems/Secondary Diagnoses: (1) COPD (chronic obstructive pulmonary disease) Status: Chronic Immunizations: Have You Had Influenza Vaccine: Unknown History of Tetanus Vaccine?: Unknown History of Pneumococcal: Unknown History of Hepatitis B Vaccine: Unknown Medication Reconciliation New Medications: Doxycycline (Monohydrate) (Doxycycline) 100 Mg Cap 100 MG PO BID, #20 DOSE Ipratropium-Albuterol (Combivent Respimat) 1 Aer Aer 1 PUFFS INH QID, #1 INH 3 Refills Prednisone Tab (Prednisone) 10 Mg Tab 10 MG PO UD, #42 DOSE 4 pills a day for four days then 3 pills a day for four days then 2 pills a day for four days then 1 pill a day Changed Medications: Albuterol Sulf (Albuterol Sulfate) 2.5 Mg/3 Ml Nebu 2.5 MG INH DIRECTED PRN for Shortness of Breath, #1 INHA (Medication details modified) Continued Medications: Alprazolam (Xanax) 0.25 Mg Tab 0.125 MG PO DAILY PRN for Anxiety/Agitation, TAB Budesonide/Formoterol Fumarate (Symbicort 160/4.5 Inhaler ) Aero 2 PUFFS INH BID, INHALER Esomeprazole Magnesium (Nexium 24Hr) 20 Mg Cap 20 MG PO QAM Fluticasone Propionate (Nasal) (Flonase Allergy Relief) 50 Mcg/Act Spr 1 SPRAY CHARISSA DAILY Furosemide (Lasix) 40 Mg Tab 40 MG PO QAM, TAB Home O2 Therapy (Oxygen) Gas Unknown Dose NA HS, BTL Linaclotide (Linzess) 290 Mcg Cap 290 MCG PO DAILY Losartan Potassium (Cozaar) 100 Mg Tab 100 MG PO QAM, TAB Methadone Hcl (Dolophine) 10 Mg Tab 10 MG PO TID, TAB Montelukast Sodium (Montelukast Sodium) 10 Mg Tab 10 MG PO QAM for 90 Days, #90 TAB 3 Refills Naproxen (Naproxen) 500 Mg Tab 500 MG PO BID for 30 Days, #60 TAB Potassium Chloride (Klor-Con M20) 20 Meq Tabcr 20 MEQ PO QAM Simethicone (Gas-X) 80 Mg Chw 1 TAB PO DIRECTED PRN for Gas or Constipation Simvastatin (Zocor) 20 Mg Tab 20 MG PO QPM, TAB Discontinued Medications: Albuterol Sulfate (Proair Respiclick) 108 Mcg/Act Aer 2 PUFFS INH Q6H Discharge Exam Review of Systems: Constitutional: No fever, No chills, No sweats Respiratory: + dyspnea on exertion, No cough, No sputum, No shortness of breath Cardiovascular: + edema, No chest pain, No orthopnea, No PND Physical Exam: General Appearance: WD/WN, + mild distress Respiratory/Chest: chest non-tender, lungs clear, + decreased breath sounds Cardiovascular: regular rate, rhythm, no murmur Extremities: + pertinent finding (changes of chronic venous stasis) Hospital Course 72 yo F, copd exacerbation in pt who continues to smoke and acute on chronic leg redness with concern for cellulitis Acute on chronic COPD PO Prednisone po taper - DuoNebs QID and continue home inhalers Tobacco abuse,did discuss Smoking cessation pt does not want meds LLE cellulitis po doxycycline no evidence of DVT on doppler, does have chronic venous stasis given home teds DVT Prophylaxis: Lovenox Dispo: From home, lives w/ Documented By: Kevin Loyd Total Time Spent: Greater than 30 minutes This includes examination of the patient, discharge planning, medication reconciliation, and communication with other providers. Discharge Instructions Please refer to the electronic Patient Visit Report (Discharge Instructions) for additional information.
[2017-03-15] MEDS ORDERED: VANCOMYCIN TROUGH ONE (15:30)
== END 2017-03-14 14:33 | disposition home or self-care (01) | DRG 191 ==
LOC: C.EDB 21:13 → C.MED 03-13 01:11 → ENRESERV 03-13 01:45 → C.4E 03-13 21:00
PROVIDERS: ADMIT Hospitalist; ATTEND Internal Medicine
DX: J44.1 Chronic obstructive pulmonary disease with (acute) exacerbation (principal); L03.116 Cellulitis of left lower limb; F17.200 Nicotine dependence, unspecified, uncomplicated; G89.29 Other chronic pain; M79.605 Pain in left leg; K59.03 Drug induced constipation; T40.3X5A Adverse effect of methadone, initial encounter; I11.0 Hypertensive heart disease with heart failure; I50.9 Heart failure, unspecified; F41.9 Anxiety disorder, unspecified; E78.5 Hyperlipidemia, unspecified; Z79.1 Long term (current) use of non-steroidal anti-inflammatories (NSAID); Z79.891 Long term (current) use of opiate analgesic; Z79.899 Other long term (current) drug therapy; Z83.6 Family history of other diseases of the respiratory system